=== PATIENT | male | born 1985 | race Caucasian/White ===

== ENCOUNTER 2018-03-25 19:12 | Emergency (ER) | payer BC ==
[~2018-03-25] VITALS: Ht 182.9 cm; Wt 102.1 kg
[2018-03-25] MEDS ORDERED: TETANUS/DIPHTHERIA TOX ADULT 0.5 ML SYR IM ONE (19:45)
[2018-03-25] MEDS ORDERED: BACITRACIN ZINC 0.9GM TP ONE (21:13)
--- NOTE | 2018-03-25 22:07 | Diagnostic Imaging Report ---
FACIAL BONES COMP HISTORY: Facial trauma, chipped tooth possible foreign body in the lower left COMPARISON: None FINDINGS: Bones: No displaced fracture. Osseous alignment is within normal limits. Joints: The joint spaces are well-maintained. Soft tissues: The soft tissues appear unremarkable. The visualized frontal, maxillary, ethmoidal and sphenoidal sinuses are clear IMPRESSION: 1. No acute radiographic abnormality. 2. No evidence of radiopaque foreign body overlying the lower lip Signed by: Dr. Myron Briseno M.D. on 03/25/2018 10:03 PM
== END 2018-03-25 22:12 | disposition home or self-care (01) ==
LOC: ER 19:12